=== PATIENT | male | born 1995 | race Caucasian/White ===

== ENCOUNTER 2018-01-08 17:56 | Emergency (ER) | payer OTHER ==
[~2018-01-08] VITALS: Ht 185.4 cm; Wt 59.0 kg
[2018-01-08 18:04] VITALS: BP_SYST 123
--- NOTE | 2018-01-08 19:02 | NUR ---
MSE performed by myself.
[2018-01-08] MEDS ORDERED: IBUPROFEN 800 MG TABLET PO ONE (19:15)
--- NOTE | 2018-01-08 19:28 | NUR ---
Pt placed to [facility], report given to GUS García.
--- NOTE | 2018-01-08 19:30 | NUR ---
Patient to ER via triage for evaluation of left knee pain/swelling that occured after a run. Patient denies any known trauma/injury, patient is awake, alert and oriented in no acute distress, vital sign signs stable, respirations even and unlabored, skin warm and dry to touch. Patient has been seen and evaluated by Gema Louis NP, will continue to observe and assess.
[2018-01-08 19:50] VITALS: BP_SYST 120
--- NOTE | 2018-01-08 19:50 | NUR ---
Patient given written and verbal discharge instructions and verbalizes understanding. ER MD discussed with patient the results and treatment provided. Patient in stable condition. ID arm band removed. Rx of Motrin given. Patient educated on pain management and to follow up with PMD. Pain Scale 3. Opportunity for questions provided and answered. Medication side effect fact sheet provided. Patient left ER in no acute distress, able to ambulate without difficulty using crutches with slow, steady gait. No adverse reaction noted to medication.
== END 2018-01-08 19:50 | disposition home or self-care (01) ==
LOC: SED 17:56
DX: M25.562 Pain in left knee (principal); R03.0 Elevated blood-pressure reading, without diagnosis of hypertension
CPT/HCPCS: 73564; 99284

== ENCOUNTER 2018-11-29 20:37 | Emergency (ER) | payer OTHER ==
[~2018-11-29] VITALS: Ht 185.4 cm; Wt 52.2 kg
[2018-11-29 21:11] VITALS: BP_SYST 152
== END 2018-11-29 23:44 | disposition left against medical advice (07) ==
LOC: SED 20:37
DX: M25.562 Pain in left knee (principal); Z53.21 Procedure and treatment not carried out due to patient leaving prior to being seen by health care provider; W01.0XXA Fall on same level from slipping, tripping and stumbling without subsequent striking against object, initial encounter; Y93.89 Activity, other specified; Y92.89 Other specified places as the place of occurrence of the external cause; Y99.8 Other external cause status
CPT/HCPCS: 73564; 99281

== ENCOUNTER 2019-03-13 15:24 | Emergency (ER) | payer OTHER ==
[~2019-03-13] VITALS: Ht 167.6 cm; Wt 54.4 kg
[2019-03-13 15:41] VITALS: BP_SYST 116
--- NOTE | 2019-03-13 15:45 | NUR ---
Patient to ER bed to gown for evaluation. Side rails up.
--- NOTE | 2019-03-13 15:59 | NUR ---
Patient presents to ER C/O cough & sore throat. PAtient A&Ox4, skin pink and warm, ambulatory to ER, afebrile, denies N/V/D, pain 0/10. Patient states he has had cough with sore throat x5 days with intermittent fever x2 days, patient states throat pain is intermittent 9/10 pain, patient also states he has stopped vaping x2 days do to sore throat & cough.
--- NOTE | 2019-03-13 16:05 | NUR ---
GENARO Louis at bedside examining patient.
--- NOTE | 2019-03-13 17:27 | NUR ---
Patient given written and verbal discharge instructions and verbalizes understanding. ER MD discussed with patient the results and treatment provided. Patient in stable condition. ID arm band removed. Rx of tamiflu & promethizine given. Patient educated on pain management and to follow up with PMD. Pain Scale 0/10. Opportunity for questions provided and answered. Medication side effect fact sheet provided.
[2019-03-13 17:28] VITALS: BP_SYST 116
== END 2019-03-13 17:27 | disposition home or self-care (01) ==
LOC: SED 15:24
DX: J10.1 Influenza due to other identified influenza virus with other respiratory manifestations (principal); F17.200 Nicotine dependence, unspecified, uncomplicated; Z71.6 Tobacco abuse counseling
CPT/HCPCS: 36415; 86710; 99283

== ENCOUNTER 2019-11-09 21:00 | Emergency (ER) | payer OTHER ==
--- NOTE | 2019-11-10 18:28 | NUR ---
[employer]
== END 2019-11-09 23:25 | disposition home or self-care (01) ==
LOC: SED 21:00
DX: S39.94XA Unspecified injury of external genitals, initial encounter (principal); W05.1XXA Fall from non-moving nonmotorized scooter, initial encounter; Y93.89 Activity, other specified; Y92.89 Other specified places as the place of occurrence of the external cause; Y99.8 Other external cause status
CPT/HCPCS: 76870-TC; 99284